=== PATIENT | female | born 1990 | race Caucasian/White ===

== ENCOUNTER 2024-05-11 07:31 | Day surgery (SDC) | payer OTHER ==
[~2024-05-11] VITALS: Ht 162.6 cm; Wt 129.7 kg
[2024-05-11] MEDS ORDERED: fentaNYL citrate 0.05 MG/ML VIAL ONE (08:45)
[2024-05-11] MEDS ORDERED: MIDAZOLAM 5 MG/5 ML VIAL ONE (08:46)
[2024-05-11] MEDS: MIDAZOLAM 2 MG/2 ML VIAL IVP ONE (09:11)
== END 2024-05-11 10:16 | disposition home or self-care (01) ==
LOC: MDS 07:31 → MMU 07:33 → MDS 10:16
PROVIDERS: ATTEND Internal Medicine Gastroenterology
DX: K75.81 Nonalcoholic steatohepatitis (NASH) (principal); Z90.49 Acquired absence of other specified parts of digestive tract; Z98.890 Other specified postprocedural states
CPT/HCPCS: 36415; 43239; 86677; J2250; J3010